=== PATIENT | male | born 1980 | race Hispanic/Latino ===

== ENCOUNTER 2020-08-29 12:12 | Outpatient (CLI) | payer OTHER | END 2020-08-29 12:13 | disposition home or self-care (01) | LOC: CSHULT 12:12 | PROVIDERS: ATTEND Internal Medicine | DX: N45.1 Epididymitis (principal); N50.3 Cyst of epididymis | CPT/HCPCS: 76870 ==

== ENCOUNTER 2023-03-09 09:16 | Outpatient (CLI) | payer BC | END 2023-03-09 09:17 | disposition home or self-care (01) | LOC: CSHRAD 09:16 | PROVIDERS: ATTEND Family Medicine | DX: M54.6 Pain in thoracic spine (principal); M25.552 Pain in left hip; M47.814 Spondylosis without myelopathy or radiculopathy, thoracic region | CPT/HCPCS: 72070 ==